=== PATIENT | male | born 1940 | race Caucasian/White ===

== ENCOUNTER 2017-07-06 23:31 | Emergency (ER) | payer MEDICARE, BC ==
[2017-07-07] MEDS ORDERED: NS 0.9% 1000 ML* 1,000 ML IV ONE (00:08)
[2017-07-07] MEDS ORDERED: Acetaminophen TAB* 325 MG PO ONE (00:55)
[2017-07-07 01:07] LABS: Urine Bilirubin Negative (Negative); Urine Glucose Negative (Negative); Urine Nitrite Negative (Negative)
[2017-07-07 01:13] LABS: Hematocrit 42 % (42-52); Hemoglobin 14.2 g/dl (14.0-18.0); Mean Corpuscular HGB Conc 34 g/dl (31-36); Mean Corpuscular Hemoglobin 30 pg (27-31); Mean Corpuscular Volume 88 fL (80-94); Mean Platelet Volume 9 um3 (7.4-10.4); Red Blood Count 4.72 10^6/ul (4.0-5.4); Red Cell Distribution Width 13 % (10.5-15); White Blood Count 10.4 10^3/ul (3.5-10.8)
[2017-07-07 01:29] LABS: Albumin 4.1 g/dL (3.2-5.2); BUN/Creatinine Ratio 16.8 (8-20); Calcium 9.6 mg/dL (8.6-10.3); EGFR African American 67.9 (>60); EGFR Non-African American 52.8 (>60); Globulin 2.8 g/dL (2-4); Potassium 3.3 mmol/L (3.5-5.0); Total Bilirubin 1.1 mg/dL (0.2-1.0); Total Protein 6.9 g/dL (6.4-8.9)
[2017-07-07 01:30] LABS: Troponin I 0.03 ng/mL (<0.04)
[2017-07-07] MEDS ORDERED: Potassium Chlor TAB* 20 MEQ TAB.ER PO ONE (01:45)
[2017-07-07 02:32] VITALS: BP 131/64
--- NOTE | 2017-07-07 05:59 | ED ---
Les Lares Tiffany, scribed for Johann Ernst on 07/07/17 at 0014 . Complex/Multi-Sys Presentation - HPI Summary HPI Summary: This patient is a 77 year old M BIBA to [facility] accompanied by with a chief complaint of cough with no production since yesterday morning. The patient rates the pain 4/10 in severity. Symptoms aggravated by nothing. Symptoms alleviated by nothing. Patient reports weakness, shakiness, and diaphoresis. Patient denies chest pain and shortness of breath. The patient does not use oxygen at home. - History Of Current Complaint Time Seen by Provider: 07/07/17 00:01 Hx Obtained From: Patient Onset/Duration: Lasting Days - Yesterday morning, Still Present Severity Currently: Mild - 4/10 Aggravating Factor(s): Nothing Alleviating Factor(s): Nothing Associated Signs And Symptoms: Positive: Other - weakness, shakiness, and diaphoresis; NEGATIVE: chest pain and shortness of breath - Allergies/Home Medications Allergies/Adverse Reactions: Allergies Allergy/AdvReac Type Severity Reaction Status Date / Time Codeine Allergy Nausea And Verified 07/07/17 00:32 Vomiting Gluten Meal Allergy Unknown Verified 07/07/17 00:32 Reaction Details Wheat Bran Allergy Unknown Verified 07/07/17 00:32 Reaction Details PMH/Surg Hx/FS Hx/Imm Hx Previously Healthy: No Endocrine/Hematology History: Reports: Hx Thyroid Disease - HYPO Denies: Hx Diabetes Cardiovascular History: Reports: Hx Hypertension - WELL CONTROLLED, WHITE COAT SYNDROME, Other Cardiovascular Problems/Disorders - 1ST DEGREE AV BLOCK PER EKG - NO CHANGE SINCE 2007 Denies: Hx Pacemaker/ICD GI History: Reports: Hx Gastroesophageal Reflux Disease, Hx Hiatal Hernia, Other GI Disorders - HERNANDEZ'S ESOPHAGUS History: Reports: Other Problems/Disorders - BPH Musculoskeletal History: Reports: Hx Arthritis, Other Musculoskeletal History - SPINAL STENOSIS Sensory History: Reports: Hx Contacts or Glasses - GLASSES Denies: Hx Hearing Aid Opthamlomology History: Reports: Hx Contacts or Glasses - GLASSES Neurological History: Reports: Other Neuro Impairments/Disorders - ARTHRITIS Psychiatric History: Denies: Hx Panic Disorder - Surgical History Surgery Procedure, Year, and Place: 1975 R KNEE SCOPING [facility] [place]. 1988 PARTIAL THYROIDECTOMY [facility] [place]. 1990 L4/5 [place]. 1996 L KNEE SCOPING [facility] [place]. 1996 SPHINCTEROTOMY. 1997 ABD [facility]. 1999 R TORN RETINA REPAIR [facility] [place]. 2002 LUMBAR SURGERY FOR SPONDYLOLISTHESIS. 2010 BILAT CATARACT [facility] [place]. 2011 R 2ND TOE AMP Hx Anesthesia Reactions: No Infectious Disease History: Denies: Traveled Outside the [place] in Last 30 Days - Family History Known Family History: Positive: Other - Pt denies relevant family history - Social History Alcohol Use: None Hx Substance Use: No Substance Use Type: Reports: None Hx Tobacco Use: Yes Smoking Status (MU): Former Smoker Have You Smoked in the Last Year: No Review of Systems Positive: Skin Diaphoresis Negative: Chest Pain Positive: Cough - With no production. Negative: Shortness Of Breath Neurological: Other - Shakiness Positive: Weakness All Other Systems Reviewed And Are Negative: Yes Physical Exam - Summary Physical Exam Summary: Appearance: Well appearing, no pain distress Skin: warm, dry, reflects adequate perfusion Head/face: normal Eyes: EOMI, CELSO ENT: normal Neck: supple, non-tender Respiratory: CTA, breath sounds present Cardiovascular: RRR, pulses symmetrical Abdomen: non-tender, soft Bowel: present Musculoskeletal: normal, strength/ROM intact Neuro: normal, sensory motor intact, A&Ox3 Triage Information Reviewed: Yes Vital Signs On Initial Exam: Initial Vitals Temp Pulse Resp BP Pulse Ox 101.2 F 91 20 134/65 92 07/07/17 00:21 07/07/17 00:21 07/07/17 00:21 07/07/17 00:21 07/07/17 00:21 Vital Signs Reviewed: Yes Diagnostics - Vital Signs Vital Signs Temp Pulse Resp BP Pulse Ox 07/07/17 03:05 98.4 F 87 21 131/64 93 07/07/17 02:30 82 24 131/64 92 07/07/17 02:00 88 24 130/57 92 07/07/17 01:30 85 22 126/60 92 07/07/17 01:00 94 18 130/63 93 07/07/17 00:30 91 148/69 92 07/07/17 00:25 92 91 07/07/17 00:23 134/65 07/07/17 00:21 101.2 F 91 20 134/65 92 - Laboratory Lab Results: Lab Results 07/07/17 07/07/17 07/07/17 Range/Units 00:55 01:00 01:00 WBC (3.5-10.8) 10^3/ul RBC (4.0-5.4) 10^6/ul Hgb (14.0-18.0) g/dl Hct (42-52) % MCV (80-94) fL MCH (27-31) pg MCHC (31-36) g/dl RDW (10.5-15) % Plt Count (150-450) 10^3/ul MPV (7.4-10.4) um3 Neut % (Auto) (38-83) % Lymph % (Auto) (25-47) % [place] % (Auto) (1-9) % Eos % (Auto) (0-6) % Baso % (Auto) (0-2) % Absolute Neuts (auto) (1.5-7.7) 10^3/ul Absolute Lymphs (auto) (1.0-4.8) 10^3/ul Absolute Monos (auto) (0-0.8) 10^3/ul Absolute Eos (auto) (0-0.6) 10^3/ul Absolute Basos (auto) (0-0.2) 10^3/ul Absolute Nucleated RBC 10^3/ul Nucleated RBC % INR (Anticoag Therapy) 1.08 H (0.77-1.02) APTT 33.2 (26.0-36.3) seconds Sodium (133-145) mmol/L Potassium (3.5-5.0) mmol/L Chloride (101-111) mmol/L Carbon Dioxide (22-32) mmol/L Anion Gap (2-11) mmol/L BUN (6-24) mg/dL Creatinine (0.67-1.17) mg/dL Est GFR ( Amer) (>60) Est GFR (Non-Af Amer) (>60) BUN/Creatinine Ratio (8-20) Glucose (70-100) mg/dL Lactic Acid (0.5-2.0) mmol/L Calcium (8.6-10.3) mg/dL Total Bilirubin (0.2-1.0) mg/dL AST (13-39) U/L ALT (7-52) U/L Alkaline Phosphatase (34-104) U/L Troponin I (<0.04) ng/mL B-Natriuretic Peptide 140 H ( - 100) pg/mL Total Protein (6.4-8.9) g/dL Albumin (3.2-5.2) g/dL Globulin (2-4) g/dL Albumin/Globulin Ratio (1-3) Urine Color Yellow Urine Appearance Clear Urine pH 7.0 (5-9) Ur Specific [place] 1.011 (1.010-1.030) Urine Protein Negative (Negative) Urine Ketones Negative (Negative) Urine Blood Negative (Negative) Urine Nitrate Negative (Negative) Urine Bilirubin Negative (Negative) Urine Urobilinogen Negative (Negative) Ur Leukocyte Esterase Negative (Negative) Urine Glucose Negative (Negative) Urine Ascorbic Acid * H (Negative) Influenza A (Rapid) (Negative) Influenza B (Rapid) (Negative) 07/07/17 07/07/17 07/07/17 Range/Units 01:00 01:00 01:00 WBC 10.4 (3.5-10.8) 10^3/ul RBC 4.72 (4.0-5.4) 10^6/ul Hgb 14.2 (14.0-18.0) g/dl Hct 42 (42-52) % MCV 88 (80-94) fL MCH 30 (27-31) pg MCHC 34 (31-36) g/dl RDW 13 (10.5-15) % Plt Count 169 (150-450) 10^3/ul MPV 9 (7.4-10.4) um3 Neut % (Auto) 83.5 H (38-83) % Lymph % (Auto) 5.2 L (25-47) % [place] % (Auto) 10.3 H (1-9) % Eos % (Auto) 0.7 (0-6) % Baso % (Auto) 0.3 (0-2) % Absolute Neuts (auto) 8.7 H (1.5-7.7) 10^3/ul Absolute Lymphs (auto) 0.5 L (1.0-4.8) 10^3/ul Absolute Monos (auto) 1.1 H (0-0.8) 10^3/ul Absolute Eos (auto) 0.1 (0-0.6) 10^3/ul Absolute Basos (auto) 0 (0-0.2) 10^3/ul Absolute Nucleated RBC 0 10^3/ul Nucleated RBC % 0 INR (Anticoag Therapy) (0.77-1.02) APTT (26.0-36.3) seconds Sodium 131 L (133-145) mmol/L Potassium 3.3 L (3.5-5.0) mmol/L Chloride 92 L (101-111) mmol/L Carbon Dioxide 30 (22-32) mmol/L Anion Gap 9 (2-11) mmol/L BUN 22 (6-24) mg/dL Creatinine 1.31 H (0.67-1.17) mg/dL Est GFR ( Amer) 67.9 (>60) Est GFR (Non-Af Amer) 52.8 (>60) BUN/Creatinine Ratio 16.8 (8-20) Glucose 191 H (70-100) mg/dL Lactic Acid 2.0 (0.5-2.0) mmol/L Calcium 9.6 (8.6-10.3) mg/dL Total Bilirubin 1.10 H (0.2-1.0) mg/dL AST 18 (13-39) U/L ALT 17 (7-52) U/L Alkaline Phosphatase 68 (34-104) U/L Troponin I 0.03 (<0.04) ng/mL B-Natriuretic Peptide ( - 100) pg/mL Total Protein 6.9 (6.4-8.9) g/dL Albumin 4.1 (3.2-5.2) g/dL Globulin 2.8 (2-4) g/dL Albumin/Globulin Ratio 1.5 (1-3) Urine Color Urine Appearance Urine pH (5-9) Ur Specific [place] (1.010-1.030) Urine Protein (Negative) Urine Ketones (Negative) Urine Blood (Negative) Urine Nitrate (Negative) Urine Bilirubin (Negative) Urine Urobilinogen (Negative) Ur Leukocyte Esterase (Negative) Urine Glucose (Negative) Urine Ascorbic Acid (Negative) Influenza A (Rapid) (Negative) Influenza B (Rapid) (Negative) 07/07/17 Range/Units 01:43 WBC (3.5-10.8) 10^3/ul RBC (4.0-5.4) 10^6/ul Hgb (14.0-18.0) g/dl Hct (42-52) % MCV (80-94) fL MCH (27-31) pg MCHC (31-36) g/dl RDW (10.5-15) % Plt Count (150-450) 10^3/ul MPV (7.4-10.4) um3 Neut % (Auto) (38-83) % Lymph % (Auto) (25-47) % [place] % (Auto) (1-9) % Eos % (Auto) (0-6) % Baso % (Auto) (0-2) % Absolute Neuts (auto) (1.5-7.7) 10^3/ul Absolute Lymphs (auto) (1.0-4.8) 10^3/ul Absolute Monos (auto) (0-0.8) 10^3/ul Absolute Eos (auto) (0-0.6) 10^3/ul Absolute Basos (auto) (0-0.2) 10^3/ul Absolute Nucleated RBC 10^3/ul Nucleated RBC % INR (Anticoag Therapy) (0.77-1.02) APTT (26.0-36.3) seconds Sodium (133-145) mmol/L Potassium (3.5-5.0) mmol/L Chloride (101-111) mmol/L Carbon Dioxide (22-32) mmol/L Anion Gap (2-11) mmol/L BUN (6-24) mg/dL Creatinine (0.67-1.17) mg/dL Est GFR ( Amer) (>60) Est GFR (Non-Af Amer) (>60) BUN/Creatinine Ratio (8-20) Glucose (70-100) mg/dL Lactic Acid (0.5-2.0) mmol/L Calcium (8.6-10.3) mg/dL Total Bilirubin (0.2-1.0) mg/dL AST (13-39) U/L ALT (7-52) U/L Alkaline Phosphatase (34-104) U/L Troponin I (<0.04) ng/mL B-Natriuretic Peptide ( - 100) pg/mL Total Protein (6.4-8.9) g/dL Albumin (3.2-5.2) g/dL Globulin (2-4) g/dL Albumin/Globulin Ratio (1-3) Urine Color Urine Appearance Urine pH (5-9) Ur Specific [place] (1.010-1.030) Urine Protein (Negative) Urine Ketones (Negative) Urine Blood (Negative) Urine Nitrate (Negative) Urine Bilirubin (Negative) Urine Urobilinogen (Negative) Ur Leukocyte Esterase (Negative) Urine Glucose (Negative) Urine Ascorbic Acid (Negative) Influenza A (Rapid) Negative (Negative) Influenza B (Rapid) Negative (Negative) Result Diagrams: 07/07/17 01:00 07/07/17 01:00 Lab Statement: Any lab studies that have been ordered have been reviewed, and results considered in the medical decision making process. - Radiology CXR Radiology Interpretation Completed By: ED Physician - Normal - EKG 00:28 Cardiac Rate: NL EKG Rhythm: Sinus Rhythm - 93 BPM EKG Interpretation: No acute changes Complex Multi-Symp Course/Dx Course Of Treatment: This patient is a 77 year old M c/o of cough with no production since yesterday morning. An EKG reveals sinus rhythm and no acute changes. CXR is, per ED physician, normal. Bloodwork/UA obtained. Patient will be discharged with follow up from PCP. The patient is agreeable with this plan. - Diagnoses Differential Diagnoses/HQI/PQRI: Sepsis, Urinary Tract Infection - influenza Provider Diagnoses: Fever, Weakness Discharge - Discharge Plan Condition: Stable Disposition: HOME Patient Education Materials: Fever in Adults (ED), Weakness (ED) Referrals: Gisselle Arnold MD [Primary Care Provider] - 3 Days Additional Instructions: Follow up with primary care provider in 3 days. Return to the Emergency Room if current symptoms worsen or if new symptoms develop. The documentation as recorded by the Les coon Tiffany accurately reflects the service I personally performed and the decisions made by Sujata perez Emmanuel.
--- NOTE | 2017-07-07 09:12 | RAD ---
Indication: Shortness of breath. Single frontal view of the chest performed at 0044 hours was reviewed. Comparison is made with previous exam dated April 26, 2015. Cardiomegaly is noted. No mediastinal shift is noted. Lung moreno are clear. IMPRESSION: NO ACTIVE CARDIOPULMONARY DISEASE IS NOTED.
== END 2017-07-07 03:05 | disposition home or self-care (01) ==
LOC: ED 23:31
DX: R50.9 Fever, unspecified (principal); R53.1 Weakness; Z87.891 Personal history of nicotine dependence
CPT/HCPCS: 36415; 71010; 80053; 81003; 83605; 83880; 84484; 85025; 85610; 85730; 87502; 93005; 99283; A9270-GY

== ENCOUNTER 2020-11-05 00:33 | Inpatient (IN) ==
[2020-11-05] MEDS ORDERED: NS 0.9% 1000 ml BAG 1,000 ML IV.FLUID IV ONE (01:10)
[2020-11-05] MEDS ORDERED: Piperacillin/Tazobac ADVAN 3.375 GM in NS 0.9% 100 ml BAG 100 ML IVPB ONE (01:10)
[2020-11-05 02:00] LABS: Hematocrit 50 % (42-52); Hemoglobin 17.1 g/dL (14.0-18.0); Mean Corpuscular HGB Conc 34 g/dL (31-36); Mean Corpuscular Hemoglobin 32 pg (27-31); Mean Corpuscular Volume 93 fL (80-94); Mean Platelet Volume 9.1 fL (7.4-10.4); Platelet Count 250 10^3/uL (150-450); Red Blood Count 5.36 10^6 /uL (4.18-5.48); Red Cell Distribution Width 14 % (10-15); White Blood Count 29.5 10^3/uL (3.5-10.8)
[2020-11-05 02:01] LABS: ABS Lymphocytes 0.7 10^3/ul (1.0-4.8); ABS Monocytes 1.7 10^3/ul (0-0.8); ABS Neutrophils 27.1 10^3/ul (1.5-7.7); Lymphocyte % 2.4 %
[2020-11-05 02:11] LABS: Activated Partial Thrombo Time 29.7 seconds (26.0-38.0); INR 1.21 (0.82-1.09)
[2020-11-05] MEDS ORDERED: HYDROcodone/ACETAMIN 5/325 mg TAB PO ONE (02:15)
[2020-11-05 02:24] LABS: ALT 24 U/L (7-52); AST 19 U/L (13-39); Albumin 4.3 g/dL (3.2-5.2); Albumin/Globulin Ratio 1.5 (1-3); Alkaline Phosphatase 81 U/L (34-104); Anion Gap 16 mmol/L (2-11); Blood Urea Nitrogen 29 mg/dL (6-24); C Reactive Protein 18.08 mg/L (<8.01); CO2 Carbon Dioxide 26 mmol/L (22-32); Chloride 85 mmol/L (101-111); EGFR African American 77.5 (>60); EGFR Non-African American 64.1 (>60); Globulin 2.8 g/dL (2-4); Glucose 197 mg/dL (70-100); Potassium 3.1 mmol/L (3.5-5.0); Sodium 127 mmol/L (135-145); Total Protein 7.1 g/dL (6.4-8.9)
[2020-11-05 02:31] LABS: Troponin I 0.59 ng/mL (<0.03)
[2020-11-05 02:41] LABS: Influenza A Molecular Negative (Negative); Influenza B Molecular Negative (Negative)
[2020-11-05 03:06] LABS: Urine Appearance Turbid; Urine Bilirubin Negative (Negative); Urine Blood 3+ (Negative); Urine Color Amber; Urine Glucose Negative (Negative); Urine Ketones Negative (Negative); Urine Nitrite Negative (Negative); Urine Protein 3+(>=500 mg/dL) (Negative); Urine Specific Gravity 1.016 (1.002-1.030); Urine Urobilinogen Negative (Negative)
[2020-11-05 03:09] LABS: Urine Bacteria Absent (Absent); Urine Red Blood Cell 3+(>10/hpf) (Absent); Urine White Blood Cell 3+(>20/hpf) (Absent)
[2020-11-05] MEDS: Vancomycin 1,250 MG in NS 0.9% 250 ml 250 ML IVPB ONE ×2 (03:16→05:54)
[2020-11-05 04:47] LABS: Magnesium 1.5 mg/dL (1.9-2.7)
[2020-11-05] MEDS ORDERED: Zosyn per Pharmacy NOTE FOLLOW UP SCH (05:00)
[2020-11-05] MEDS ORDERED: Magnesium Sulfate 2 gm BAG 2 GM/50 ML BAG IVPB ONE (05:51)
[2020-11-05] MEDS ORDERED: Potassium Chlor 20 meq TAB.ER PO ONE (06:00)
[2020-11-05] MEDS: Enoxaparin 40 MG/0.4 ML SYR SUBCUT SCH (06:22)
[2020-11-05] MEDS: ZOSYN 3.375 GM Q8H per EXTENDED INFUSION IV SCH ×3 (06:36→21:54)
[2020-11-05 09:30] LABS: Troponin I 0.46 ng/mL (<0.03)
[2020-11-05] MEDS: NS 0.9% 1000 ml BAG 1,000 ML IV SCH ×2 (10:54→21:53)
[2020-11-05] MEDS: Polyethylene Glycol 3350 17 GM PACKET PO PRN (21:52)
[2020-11-06] MEDS: Enoxaparin 40 MG/0.4 ML SYR SUBCUT SCH (06:28)
[2020-11-06] MEDS: ZOSYN 3.375 GM Q8H per EXTENDED INFUSION IV SCH ×3 (06:29→21:47)
[2020-11-06 09:15] LABS: Hematocrit 42 % (42-52); Hemoglobin 14.4 g/dL (14.0-18.0); Mean Corpuscular HGB Conc 35 g/dL (31-36); Mean Corpuscular Hemoglobin 32 pg (27-31); Mean Corpuscular Volume 92 fL (80-94); Mean Platelet Volume 8.6 fL (7.4-10.4); Platelet Count 216 10^3/uL (150-450); Red Blood Count 4.51 10^6 /uL (4.18-5.48); Red Cell Distribution Width 14 % (10-15); White Blood Count 30.1 10^3/uL (3.5-10.8)
[2020-11-06 09:35] LABS: Albumin 3.7 g/dL (3.2-5.2); Albumin/Globulin Ratio 1.4 (1-3); C Reactive Protein 178.25 mg/L (<8.01); Calcium 9.6 mg/dL (8.6-10.3); EGFR African American 90.7 (>60); Globulin 2.7 g/dL (2-4); Potassium 3.7 mmol/L (3.5-5.0); Total Bilirubin 2.7 mg/dL (0.2-1.0); Total Protein 6.4 g/dL (6.4-8.9)
[2020-11-06] MEDS: NS 0.9% 1000 ml BAG 1,000 ML IV SCH ×2 (14:40→21:47)
[2020-11-06] MEDS: Polyethylene Glycol 3350 17 GM PACKET PO PRN (14:41)
[2020-11-06] MEDS: Cholecalciferol (VIT D3) 1,000 unit TAB PO SCH (22:00)
[2020-11-07] MEDS ORDERED: hydrALAZINE 20 mg/ml 1 ML Vial IV IV SLOW PU ONE (00:11)
[2020-11-07] MEDS ORDERED: NS 0.9% 1000 ml BAG 1,000 ML IV SCH (00:15)
[2020-11-07] MEDS ORDERED: Furosemide 20 mg/2 ml IV VIAL IV ONE (01:59)
[2020-11-07] MEDS ORDERED: Morphine 2 MG/ML SYRINGE IV ONE (02:37)
[2020-11-07 04:13] LABS: Urine Appearance Clear; Urine Bilirubin Negative (Negative); Urine Blood 1+ (Negative); Urine Color Straw; Urine Glucose 1+(50 mg/dL) (Negative); Urine Ketones Negative (Negative); Urine Nitrite Negative (Negative); Urine Protein 1+(30 mg/dL) (Negative); Urine Specific Gravity 1.008 (1.002-1.030); Urine Urobilinogen Negative (Negative)
[2020-11-07 04:14] LABS: Urine Bacteria Absent (Absent); Urine Red Blood Cell Trace(0-2/hpf) (Absent); Urine White Blood Cell Trace(0-5/hpf) (Absent)
[2020-11-07] MEDS: Enoxaparin 40 MG/0.4 ML SYR SUBCUT SCH (06:13)
[2020-11-07] MEDS: ZOSYN 3.375 GM Q8H per EXTENDED INFUSION IV SCH ×2 (06:14→14:52)
[2020-11-07 06:40] LABS: ABS Lymphocytes 0.4 10^3/ul (1.0-4.8); ABS Monocytes 1.2 10^3/ul (0-0.8); ABS Neutrophils 14.2 10^3/ul (1.5-7.7); Hematocrit 42 % (42-52); Hemoglobin 14.1 g/dL (14.0-18.0); Lymphocyte % 2.4 %; Mean Corpuscular HGB Conc 34 g/dL (31-36); Mean Corpuscular Hemoglobin 31 pg (27-31); Mean Corpuscular Volume 94 fL (80-94); Mean Platelet Volume 8.7 fL (7.4-10.4); Platelet Count 189 10^3/uL (150-450); Red Blood Count 4.49 10^6 /uL (4.18-5.48); Red Cell Distribution Width 14 % (10-15); White Blood Count 15.7 10^3/uL (3.5-10.8)
[2020-11-07 06:51] LABS: C Reactive Protein 92.22 mg/L (<8.01); EGFR African American 90.7 (>60); Magnesium 1.8 mg/dL (1.9-2.7); Potassium 3.3 mmol/L (3.5-5.0)
[2020-11-07] MEDS ORDERED: Potassium Chlor 20 meq TAB.ER PO ONE (14:15)
[2020-11-07] MEDS: Polyethylene Glycol 3350 17 GM PACKET PO PRN (14:51)
[2020-11-07] MEDS ORDERED: Magnesium Sulfate 2 gm BAG 2 GM/50 ML BAG IVPB ONE (17:24)
[2020-11-07] MEDS: cefTRIAXone 1 gm/50 mL NS BAG 1 GM/50 ML BAG IVPB SCH (21:42)
[2020-11-07] MEDS: Cholecalciferol (VIT D3) 1,000 unit TAB PO SCH (22:08)
[2020-11-08] MEDS: Enoxaparin 40 MG/0.4 ML SYR SUBCUT SCH (05:39)
[2020-11-08 09:11] LABS: ABS Lymphocytes 0.6 10^3/ul (1.0-4.8); ABS Monocytes 1.2 10^3/ul (0-0.8); ABS Neutrophils 8.6 10^3/ul (1.5-7.7); Eosinophil % 0.2 %; Hematocrit 44 % (42-52); Hemoglobin 15.2 g/dL (14.0-18.0); Lymphocyte % 5.8 %; Mean Corpuscular HGB Conc 34 g/dL (31-36); Mean Corpuscular Hemoglobin 32 pg (27-31); Mean Corpuscular Volume 93 fL (80-94); Platelet Count 193 10^3/uL (150-450); Red Blood Count 4.77 10^6 /uL (4.18-5.48); Red Cell Distribution Width 14 % (10-15); White Blood Count 10.5 10^3/uL (3.5-10.8)
[2020-11-08 09:37] LABS: Calcium 9.3 mg/dL (8.6-10.3); Potassium 4.2 mmol/L (3.5-5.0)
[2020-11-08 09:43] LABS: EGFR African American 88.6 (>60); EGFR Non-African American 73.2 (>60)
[2020-11-08] MEDS: RINSE MT PRN ×2 (09:48→21:00)
[2020-11-08] MEDS: Polyethylene Glycol 3350 17 GM PACKET PO PRN (10:08)
[2020-11-08] MEDS ORDERED: COVID-19 VACCINE, MRNA(MODERNA)/PF 100 MCG/0.5 ML IM ONE (14:00)
[2020-11-08] MEDS ORDERED: Al Hydrox/Mg Hydrox/Simet LIQ 30 ML UDC PO PRN (15:36)
[2020-11-08] MEDS ORDERED: Albuterol HFA INHALER 8 gm MDI INH PRN (15:37)
[2020-11-08] MEDS: cefTRIAXone 1 gm/50 mL NS BAG 1 GM/50 ML BAG IVPB SCH (21:00)
[2020-11-08] MEDS: Cholecalciferol (VIT D3) 1,000 unit TAB PO SCH (21:05)
[2020-11-09] MEDS: Enoxaparin 40 MG/0.4 ML SYR SUBCUT SCH (05:29)
[2020-11-09] MEDS ORDERED: Furosemide 20 mg/2 ml IV VIAL IV ONE (08:44)
[2020-11-09 09:20] LABS: ABS Lymphocytes 0.9 10^3/ul (1.0-4.8); ABS Monocytes 1.2 10^3/ul (0-0.8); ABS Neutrophils 8.2 10^3/ul (1.5-7.7); Eosinophil % 0.3 %; Hematocrit 43 % (42-52); Hemoglobin 14.6 g/dL (14.0-18.0); Lymphocyte % 8.3 %; Mean Corpuscular HGB Conc 34 g/dL (31-36); Mean Corpuscular Hemoglobin 32 pg (27-31); Mean Corpuscular Volume 93 fL (80-94); Mean Platelet Volume 8.6 fL (7.4-10.4); Nucleated Red Blood Cells % 0.1; Platelet Count 199 10^3/uL (150-450); Red Blood Count 4.63 10^6 /uL (4.18-5.48); Red Cell Distribution Width 14 % (10-15); White Blood Count 10.3 10^3/uL (3.5-10.8)
[2020-11-09 09:39] LABS: Calcium 9.3 mg/dL (8.6-10.3); EGFR African American 110.4 (>60); EGFR Non-African American 91.2 (>60)
[2020-11-09] MEDS: Cholecalciferol (VIT D3) 1,000 unit TAB PO SCH (20:30)
[2020-11-09] MEDS: cefTRIAXone 1 gm/50 mL NS BAG 1 GM/50 ML BAG IVPB SCH (20:33)
[2020-11-09] MEDS: RINSE MT PRN (21:50)
[2020-11-10] MEDS: Enoxaparin 40 MG/0.4 ML SYR SUBCUT SCH (05:13)
[2020-11-10 08:37] VITALS: BP 142/82
== END 2020-11-10 12:45 | DRG 872 ==
LOC: ED 00:33 → MED 04:02
PROVIDERS: ADMIT Internal Medicine Interventional Cardiology; ATTEND Hospitalist

== ENCOUNTER 2020-12-08 15:49 | Inpatient (IN) ==
[2020-12-08] MEDS ORDERED: Lactated Ringers 1000 ml BAG IV.FLUID IV ONE (16:23)
[2020-12-08] MEDS ORDERED: Piperacillin/Tazobac ADVAN 3.375 GM in NS 0.9% 100 ml BAG 100 ML IVPB ONE (16:23)
[2020-12-08] MEDS ORDERED: Vancomycin 1,250 MG in NS 0.9% 250 ml 250 ML IVPB ONE (17:00)
[2020-12-08 17:02] LABS: ABS Basophils 0.1 10^3/ul (0-0.2); ABS Lymphocytes 0.4 10^3/ul (1.0-4.8); ABS Monocytes 1.2 10^3/ul (0-0.8); ABS Neutrophils 18.8 10^3/ul (1.5-7.7); Hematocrit 37 % (42-52); Hemoglobin 12.9 g/dL (14.0-18.0); Lymphocyte % 1.9 %; Mean Corpuscular HGB Conc 35 g/dL (31-36); Mean Corpuscular Hemoglobin 32 pg (27-31); Mean Corpuscular Volume 91 fL (80-94); Mean Platelet Volume 8.8 fL (7.4-10.4); Platelet Count 282 10^3/uL (150-450); Red Cell Distribution Width 14 % (10-15); White Blood Count 20.4 10^3/uL (3.5-10.8)
[2020-12-08 17:11] LABS: Activated Partial Thrombo Time 37.1 seconds (26.0-38.0); INR 1.48 (0.82-1.09)
[2020-12-08 17:20] LABS: ALT 38 U/L (7-52); Albumin 3.4 g/dL (3.2-5.2); Albumin/Globulin Ratio 0.9 (1-3); Alkaline Phosphatase 108 U/L (35-149); Blood Urea Nitrogen 37 mg/dL (6-24); C Reactive Protein 335.56 mg/L (<8.01); CO2 Carbon Dioxide 24 mmol/L (22-32); Calcium 9.3 mg/dL (8.6-10.3); Chloride 93 mmol/L (101-111); EGFR African American 58.2 (>60); EGFR Non-African American 48.1 (>60); Globulin 3.7 g/dL (2-4); Glucose 189 mg/dL (70-100); Sodium 126 mmol/L (135-145); Total Protein 7.1 g/dL (6.4-8.9)
[2020-12-08 17:24] LABS: Anion Gap 9 mmol/L (2-11); Troponin I 0.81 ng/mL (<0.03)
[2020-12-08 17:40] LABS: Urine Appearance Cloudy; Urine Bilirubin Negative (Negative); Urine Blood 3+ (Negative); Urine Color Yellow; Urine Glucose Negative (Negative); Urine Ketones Negative (Negative); Urine Nitrite Negative (Negative); Urine Protein 2+(100 mg/dL) (Negative); Urine Specific Gravity 1.014 (1.002-1.030); Urine Urobilinogen Negative (Negative)
[2020-12-08 18:06] LABS: Urine Bacteria Absent (Absent); Urine Red Blood Cell 3+(>10/hpf) (Absent); Urine Squamous Epithelial Cell Present (Absent); Urine Transitional Epithelial Present (Absent); Urine White Blood Cell 3+(>20/hpf) (Absent)
[2020-12-08 20:44] LABS: Influenza A Molecular Negative (Negative); Influenza B Molecular Negative (Negative)
[2020-12-08] MEDS ORDERED: NS 0.9% 500 ml BAG 500 ML IV SCH (22:00)
[2020-12-08] MEDS ORDERED: Dextrose 50% Syringe 50 ml 25 GM/50 ML SYRINGE IV PUSH PRN (23:57)
[2020-12-09] MEDS ORDERED: Albuterol HFA INHALER 8 gm MDI INH PRN (00:27)
[2020-12-09] MEDS ORDERED: Al Hydrox/Mg Hydrox/Simet LIQ 30 ML UDC PO PRN (00:27)
[2020-12-09] MEDS ORDERED: Polyethylene Glycol 3350 17 GM PACKET PO PRN (00:27)
[2020-12-09] MEDS ORDERED: NS 0.9% 500 ml BAG 500 ML IV SCH ×2 (00:41)
[2020-12-09] MEDS ORDERED: Vancomycin per Pharmacy 1 EA NOTE FOLLOW UP SCH (01:00)
[2020-12-09] MEDS: Enoxaparin 40 MG/0.4 ML SYR SUBCUT SCH ×2 (01:02→22:35)
[2020-12-09 01:15] LABS: AST Redraw 36 U/L (13-39)
[2020-12-09 01:19] LABS: Troponin I 0.62 ng/mL (<0.03)
[2020-12-09] MEDS: Albuterol/Ipratropium NEB.SOL (2.5/0.5 MG) 3 ML NEB.SOLN INH SCH ×4 (04:35→19:39)
[2020-12-09 04:55] LABS: Anion Gap 6 mmol/L (2-11); Blood Urea Nitrogen 29 mg/dL (6-24); CO2 Carbon Dioxide 24 mmol/L (22-32); Calcium 8.4 mg/dL (8.6-10.3); Chloride 100 mmol/L (101-111); EGFR African American 73.7 (>60); EGFR Non-African American 60.9 (>60); Glucose 138 mg/dL (70-100); Potassium 3.7 mmol/L (3.5-5.0); Sodium 130 mmol/L (135-145)
[2020-12-09 05:37] LABS: ABS Lymphocytes 0.5 10^3/ul (1.0-4.8); ABS Neutrophils 11.9 10^3/ul (1.5-7.7); Eosinophil % 0.1 %; Hematocrit 31 % (42-52); Hemoglobin 10.5 g/dL (14.0-18.0); Lymphocyte % 3.5 %; Mean Corpuscular HGB Conc 34 g/dL (31-36); Mean Corpuscular Hemoglobin 31 pg (27-31); Mean Corpuscular Volume 92 fL (80-94); Mean Platelet Volume 8.2 fL (7.4-10.4); Platelet Count 232 10^3/uL (150-450); Red Blood Count 3.39 10^6 /uL (4.18-5.48); Red Cell Distribution Width 14 % (10-15); White Blood Count 13.4 10^3/uL (3.5-10.8)
[2020-12-09 05:47] LABS: Calcium 8.6 mg/dL (8.6-10.3); Magnesium 1.3 mg/dL (1.9-2.7); Potassium 3.7 mmol/L (3.5-5.0)
[2020-12-09 05:52] LABS: Troponin I 0.61 ng/mL (<0.03)
[2020-12-09 05:53] LABS: EGFR African American 73.7 (>60); EGFR Non-African American 60.9 (>60)
[2020-12-09] MEDS ORDERED: Perflutren Lipid Microsphere 3 ML VIAL ONE (08:01)
[2020-12-09] MEDS: Magnesium Sulf 4 GM/100 ML IV 4,000 MG/100 ML BAG IVPB ONE ×2 (08:19→14:40)
[2020-12-09] MEDS: CMC: Meloxicam 7.5 mg TAB (NF) PO SCH ×2 (08:20→22:35)
[2020-12-09] MEDS ORDERED: Cefepime 2 GM in Dextrose 2 GM/50 ML BAG IV SCH (09:00)
[2020-12-09] MEDS: Cefepime 2 GM in Dextrose 2 GM/50 ML BAG IV SCH (14:00)
[2020-12-09] MEDS ORDERED: Vancomycin Random Level NOTE FOLLOW UP ONE (17:00)
[2020-12-09] MEDS: Vancomycin 1,250 MG in NS 0.9% 250 ml 250 ML IVPB SCH (17:32)
[2020-12-09] MEDS ORDERED: Albuterol/Ipratropium NEB.SOL (2.5/0.5 MG) 3 ML NEB.SOLN INH PRN (19:45)
[2020-12-09] MEDS ORDERED: Senna TAB 8.6 mg TAB PO SCH (21:00)
[2020-12-09] MEDS: Cholecalciferol (VIT D3) 1,000 unit TAB PO SCH (22:34)
[2020-12-09] MEDS: Magnesium Hydroxide LIQ 30 ML UDC PO SCH (22:35)
[2020-12-10] MEDS: Cefepime 2 GM in Dextrose 2 GM/50 ML BAG IV SCH ×2 (02:33→13:46)
[2020-12-10 07:43] LABS: Hematocrit 31 % (42-52); Hemoglobin 10.8 g/dL (14.0-18.0); Mean Corpuscular HGB Conc 34 g/dL (31-36); Mean Corpuscular Hemoglobin 32 pg (27-31); Mean Corpuscular Volume 92 fL (80-94); Mean Platelet Volume 8.7 fL (7.4-10.4); Platelet Count 226 10^3/uL (150-450); Red Blood Count 3.42 10^6 /uL (4.18-5.48); Red Cell Distribution Width 14 % (10-15); White Blood Count 8.5 10^3/uL (3.5-10.8)
[2020-12-10 08:29] LABS: Calcium 8.6 mg/dL (8.6-10.3); EGFR African American 81.8 (>60); EGFR Non-African American 67.6 (>60); Magnesium 2.2 mg/dL (1.9-2.7); Potassium 4.3 mmol/L (3.5-5.0)
[2020-12-10] MEDS ORDERED: Vancomycin 1,000 MG in NS 0.9% 250 ml 250 ML IVPB ONE (09:00)
[2020-12-10] MEDS: Magnesium Hydroxide LIQ 30 ML UDC PO SCH ×2 (09:13→20:28)
[2020-12-10] MEDS: CMC: Meloxicam 7.5 mg TAB (NF) PO SCH (09:19)
[2020-12-10] MEDS ORDERED: Senna TAB 8.6 mg TAB PO PRN (11:27)
[2020-12-10] MEDS: Vancomycin 1,250 MG in NS 0.9% 250 ml 250 ML IVPB SCH (17:28)
[2020-12-10] MEDS: Cholecalciferol (VIT D3) 1,000 unit TAB PO SCH (20:20)
[2020-12-10] MEDS: Enoxaparin 40 MG/0.4 ML SYR SUBCUT SCH (20:29)
[2020-12-11] MEDS: Cefepime 2 GM in Dextrose 2 GM/50 ML BAG IV SCH ×2 (02:41→14:40)
[2020-12-11 06:27] LABS: Calcium 8.8 mg/dL (8.6-10.3); EGFR African American 88.6 (>60); EGFR Non-African American 73.2 (>60); Magnesium 2.2 mg/dL (1.9-2.7); Potassium 4.3 mmol/L (3.5-5.0)
[2020-12-11] MEDS: CMCS:Meloxicam 7.5 mg TAB (NF) PO PRN (09:40)
[2020-12-11] MEDS: Magnesium Hydroxide LIQ 30 ML UDC PO SCH (09:41)
[2020-12-11] MEDS ORDERED: Vancomycin Trough Check NOTE FOLLOW UP ONE (17:30)
[2020-12-11] MEDS: Vancomycin 1,250 MG in NS 0.9% 250 ml 250 ML IVPB SCH (20:34)
[2020-12-11] MEDS: Enoxaparin 40 MG/0.4 ML SYR SUBCUT SCH (22:10)
[2020-12-11] MEDS: Cholecalciferol (VIT D3) 1,000 unit TAB PO SCH (22:11)
[2020-12-12 06:38] LABS: Calcium 8.7 mg/dL (8.6-10.3); EGFR African American 95.3 (>60); EGFR Non-African American 78.8 (>60); Potassium 3.9 mmol/L (3.5-5.0)
[2020-12-12] MEDS: cefTRIAXone 1 gm/50 mL NS BAG 1 GM/50 ML BAG IVPB SCH (09:10)
[2020-12-12] MEDS: Vancomycin 1,250 MG in NS 0.9% 250 ml 250 ML IVPB SCH (17:33)
[2020-12-12] MEDS: Cholecalciferol (VIT D3) 1,000 unit TAB PO SCH (20:21)
[2020-12-12] MEDS: Enoxaparin 40 MG/0.4 ML SYR SUBCUT SCH (20:23)
[2020-12-13 05:56] LABS: ABS Basophils 0.1 10^3/ul (0-0.2); ABS Eosinophils 0.1 10^3/ul (0-0.6); ABS Lymphocytes 0.9 10^3/ul (1.0-4.8); ABS Monocytes 1.1 10^3/ul (0-0.8); ABS Neutrophils 7.7 10^3/ul (1.5-7.7); Eosinophil % 1.3 %; Hematocrit 35 % (42-52); Hemoglobin 11.9 g/dL (14.0-18.0); Lymphocyte % 9.4 %; Mean Corpuscular HGB Conc 34 g/dL (31-36); Mean Corpuscular Hemoglobin 31 pg (27-31); Mean Corpuscular Volume 91 fL (80-94); Mean Platelet Volume 8.7 fL (7.4-10.4); Platelet Count 286 10^3/uL (150-450); Red Blood Count 3.81 10^6 /uL (4.18-5.48); Red Cell Distribution Width 14 % (10-15); White Blood Count 9.9 10^3/uL (3.5-10.8)
[2020-12-13 06:18] LABS: Calcium 8.8 mg/dL (8.6-10.3); EGFR African American 97.8 (>60); EGFR Non-African American 80.8 (>60); Potassium 3.9 mmol/L (3.5-5.0)
[2020-12-13] MEDS: cefTRIAXone 1 gm/50 mL NS BAG 1 GM/50 ML BAG IVPB SCH (09:57)
[2020-12-13] MEDS: Vancomycin 1,250 MG in NS 0.9% 250 ml 250 ML IVPB SCH (18:54)
[2020-12-13] MEDS: Cholecalciferol (VIT D3) 1,000 unit TAB PO SCH (21:29)
[2020-12-13] MEDS: Enoxaparin 40 MG/0.4 ML SYR SUBCUT SCH (21:30)
[2020-12-14 05:21] LABS: Hematocrit 34 % (42-52); Hemoglobin 11.8 g/dL (14.0-18.0); Mean Corpuscular HGB Conc 35 g/dL (31-36); Mean Corpuscular Hemoglobin 32 pg (27-31); Mean Corpuscular Volume 91 fL (80-94); Mean Platelet Volume 8.6 fL (7.4-10.4); Platelet Count 320 10^3/uL (150-450); Red Blood Count 3.75 10^6 /uL (4.18-5.48); Red Cell Distribution Width 14 % (10-15); White Blood Count 9.8 10^3/uL (3.5-10.8)
[2020-12-14 05:31] LABS: Calcium 8.8 mg/dL (8.6-10.3); EGFR African American 101.7 (>60); Potassium 3.4 mmol/L (3.5-5.0)
[2020-12-14 06:59] LABS: Magnesium 1.8 mg/dL (1.9-2.7)
[2020-12-14 07:32] LABS: ABS Basophils 0.1 10^3/ul (0-0.2); ABS Eosinophils 0.2 10^3/ul (0-0.6); ABS Lymphocytes 1.4 10^3/ul (1.0-4.8); ABS Monocytes 1.2 10^3/ul (0-0.8); Eosinophil % 1.6 %
[2020-12-14] MEDS: cefTRIAXone 1 gm/50 mL NS BAG 1 GM/50 ML BAG IVPB SCH (09:18)
[2020-12-14] MEDS ORDERED: Magnesium Sulfate 2 gm BAG 2 GM/50 ML BAG IVPB ONE (09:25)
[2020-12-14] MEDS ORDERED: Vancomycin Trough Check NOTE FOLLOW UP ONE (17:30)
[2020-12-14 18:07] LABS: EGFR African American 97.8 (>60); EGFR Non-African American 80.8 (>60)
[2020-12-14 18:20] LABS: Vancomycin Trough 16.4 mcg/mL
[2020-12-14] MEDS: Vancomycin 1,250 MG in NS 0.9% 250 ml 250 ML IVPB SCH (20:05)
[2020-12-14] MEDS: Cholecalciferol (VIT D3) 1,000 unit TAB PO SCH (21:15)
[2020-12-14] MEDS: Enoxaparin 40 MG/0.4 ML SYR SUBCUT SCH (21:18)
[2020-12-15] MEDS ORDERED: Vancomycin 1000 MG in NS 0.9% 250 ML IVPB SCH (16:00)
[2020-12-15] MEDS: Cholecalciferol (VIT D3) 1,000 unit TAB PO SCH (20:12)
[2020-12-15] MEDS: Enoxaparin 40 MG/0.4 ML SYR SUBCUT SCH (20:16)
[2020-12-15] MEDS: Nystatin TOP POWDER 15 GM BTL TOPICAL SCH (23:10)
[2020-12-16] MEDS: Magnesium Hydroxide LIQ 30 ML UDC PO PRN ×2 (11:00→21:07)
[2020-12-16] MEDS: Nystatin TOP POWDER 15 GM BTL TOPICAL SCH ×3 (11:06→21:07)
[2020-12-16] MEDS: Cholecalciferol (VIT D3) 1,000 unit TAB PO SCH (21:03)
[2020-12-16] MEDS: Enoxaparin 40 MG/0.4 ML SYR SUBCUT SCH (21:08)
[2020-12-17] MEDS: Nystatin TOP POWDER 15 GM BTL TOPICAL SCH ×3 (09:01→21:51)
[2020-12-17] MEDS ORDERED: Ondansetron 4 mg VIAL 2 MG/ML 2 ml VIAL IV PRN (12:28)
[2020-12-17] MEDS ORDERED: Ondansetron 4 mg VIAL 2 MG/ML 2 ml VIAL ONE (12:29)
[2020-12-17] MEDS ORDERED: guaiFENesin 100 mg/5 ml LIQ unit dose cup PO PRN (16:01)
[2020-12-17] MEDS: Oral Rinse (Biotene)(NF) 237 ML or 473 ML ORAL RINSE BTL MT SCH ×2 (18:06→22:01)
[2020-12-17] MEDS: Cholecalciferol (VIT D3) 1,000 unit TAB PO SCH (21:50)
[2020-12-17] MEDS: Enoxaparin 40 MG/0.4 ML SYR SUBCUT SCH (21:51)
[2020-12-18] MEDS: Oral Rinse (Biotene)(NF) 237 ML or 473 ML ORAL RINSE BTL MT SCH ×5 (06:00→22:24)
[2020-12-18] MEDS: Nystatin TOP POWDER 15 GM BTL TOPICAL SCH ×3 (08:45→22:23)
[2020-12-18] MEDS: Cholecalciferol (VIT D3) 1,000 unit TAB PO SCH (22:19)
[2020-12-18] MEDS: Enoxaparin 40 MG/0.4 ML SYR SUBCUT SCH (22:20)
[2020-12-19] MEDS: Oral Rinse (Biotene)(NF) 237 ML or 473 ML ORAL RINSE BTL MT SCH ×5 (05:45→20:22)
[2020-12-19 05:54] LABS: Hematocrit 32 % (42-52); Mean Corpuscular HGB Conc 34 g/dL (31-36); Mean Corpuscular Hemoglobin 31 pg (27-31); Mean Corpuscular Volume 90 fL (80-94); Mean Platelet Volume 8.3 fL (7.4-10.4); Platelet Count 378 10^3/uL (150-450); Red Blood Count 3.58 10^6 /uL (4.18-5.48); Red Cell Distribution Width 14 % (10-15); White Blood Count 11.5 10^3/uL (3.5-10.8)
[2020-12-19 06:14] LABS: ABS Basophils 0.1 10^3/ul (0-0.2); ABS Eosinophils 0.1 10^3/ul (0-0.6); ABS Lymphocytes 1.3 10^3/ul (1.0-4.8); ABS Monocytes 1.3 10^3/ul (0-0.8); ABS Neutrophils 8.8 10^3/ul (1.5-7.7); C Reactive Protein 46.79 mg/L (<8.01); Calcium 8.5 mg/dL (8.6-10.3); EGFR African American 104.4 (>60); EGFR Non-African American 86.3 (>60); Eosinophil % 1.1 %; Lymphocyte % 10.9 %; Potassium 3.1 mmol/L (3.5-5.0)
[2020-12-19] MEDS ORDERED: Potassium Chloride LIQUID 20 MEQ/15 ML LIQUID PO ONE (06:20)
[2020-12-19] MEDS ORDERED: NS 0.9% 1000 ml BAG 1,000 ML IV SCH (06:30)
[2020-12-19 06:44] LABS: Magnesium 1.6 mg/dL (1.9-2.7)
[2020-12-19] MEDS ORDERED: Magnesium Sulfate IV 3 GM in NS 0.9% 100 ml BAG 100 ML IVPB ONE (08:00)
[2020-12-19] MEDS: Nystatin TOP POWDER 15 GM BTL TOPICAL SCH ×3 (08:23→20:21)
[2020-12-19] MEDS ORDERED: Vancomycin Trough Check NOTE FOLLOW UP ONE (15:30)
[2020-12-19] MEDS: Cholecalciferol (VIT D3) 1,000 unit TAB PO SCH (20:15)
[2020-12-19] MEDS: Enoxaparin 40 MG/0.4 ML SYR SUBCUT SCH (20:20)
[2020-12-20 05:25] LABS: Hematocrit 31 % (42-52); Hemoglobin 10.6 g/dL (14.0-18.0); Mean Corpuscular HGB Conc 34 g/dL (31-36); Mean Corpuscular Hemoglobin 31 pg (27-31); Mean Corpuscular Volume 91 fL (80-94); Mean Platelet Volume 7.9 fL (7.4-10.4); Platelet Count 365 10^3/uL (150-450); Red Blood Count 3.39 10^6 /uL (4.18-5.48); Red Cell Distribution Width 14 % (10-15); White Blood Count 8.4 10^3/uL (3.5-10.8)
[2020-12-20 05:47] LABS: C Reactive Protein 36.65 mg/L (<8.01); Calcium 8.5 mg/dL (8.6-10.3); EGFR Non-African American 92.5 (>60); Magnesium 1.9 mg/dL (1.9-2.7); Potassium 3.5 mmol/L (3.5-5.0)
[2020-12-20] MEDS: Oral Rinse (Biotene)(NF) 237 ML or 473 ML ORAL RINSE BTL MT SCH ×4 (05:48→17:52)
[2020-12-20 07:17] LABS: ABS Basophils 0.1 10^3/ul (0-0.2); ABS Eosinophils 0.1 10^3/ul (0-0.6); ABS Lymphocytes 1.2 10^3/ul (1.0-4.8); ABS Monocytes 1.1 10^3/ul (0-0.8); ABS Neutrophils 5.9 10^3/ul (1.5-7.7); Eosinophil % 1.5 %; Lymphocyte % 14.4 %
[2020-12-20] MEDS: Nystatin TOP POWDER 15 GM BTL TOPICAL SCH ×3 (09:12→21:08)
[2020-12-20] MEDS: Cholecalciferol (VIT D3) 1,000 unit TAB PO SCH (21:02)
[2020-12-20] MEDS: Enoxaparin 40 MG/0.4 ML SYR SUBCUT SCH (21:03)
[2020-12-21] MEDS: Oral Rinse (Biotene)(NF) 237 ML or 473 ML ORAL RINSE BTL MT SCH ×6 (00:01→22:19)
[2020-12-21 06:59] LABS: ABS Basophils 0.1 10^3/ul (0-0.2); ABS Eosinophils 0.2 10^3/ul (0-0.6); ABS Lymphocytes 1.3 10^3/ul (1.0-4.8); ABS Neutrophils 5.9 10^3/ul (1.5-7.7); Hematocrit 32 % (42-52); Hemoglobin 11.2 g/dL (14.0-18.0); Lymphocyte % 15.3 %; Mean Corpuscular HGB Conc 35 g/dL (31-36); Mean Corpuscular Hemoglobin 32 pg (27-31); Mean Corpuscular Volume 90 fL (80-94); Mean Platelet Volume 8.4 fL (7.4-10.4); Platelet Count 368 10^3/uL (150-450); Red Blood Count 3.55 10^6 /uL (4.18-5.48); Red Cell Distribution Width 14 % (10-15); White Blood Count 8.4 10^3/uL (3.5-10.8)
[2020-12-21 07:21] LABS: Calcium 8.8 mg/dL (8.6-10.3); EGFR African American 113.6 (>60); EGFR Non-African American 93.9 (>60); Magnesium 1.8 mg/dL (1.9-2.7); Potassium 3.7 mmol/L (3.5-5.0)
[2020-12-21] MEDS ORDERED: Magnesium Sulfate 2 gm BAG 2 GM/50 ML BAG IVPB ONE (08:00)
[2020-12-21] MEDS: Nystatin TOP POWDER 15 GM BTL TOPICAL SCH ×3 (10:32→21:52)
[2020-12-21] MEDS: CMCS:Meloxicam 7.5 mg TAB (NF) PO PRN (10:33)
[2020-12-21] MEDS: Cholecalciferol (VIT D3) 1,000 unit TAB PO SCH (21:52)
[2020-12-21] MEDS: Magnesium Hydroxide LIQ 30 ML UDC PO PRN (21:54)
[2020-12-21] MEDS: Enoxaparin 40 MG/0.4 ML SYR SUBCUT SCH (21:55)
[2020-12-22] MEDS: Oral Rinse (Biotene)(NF) 237 ML or 473 ML ORAL RINSE BTL MT SCH ×5 (05:44→21:21)
[2020-12-22 06:11] LABS: Calcium 8.4 mg/dL (8.6-10.3); EGFR African American 118.8 (>60); EGFR Non-African American 98.2 (>60); Potassium 3.7 mmol/L (3.5-5.0)
[2020-12-22] MEDS: Nystatin TOP POWDER 15 GM BTL TOPICAL SCH ×3 (08:55→21:20)
[2020-12-22] MEDS: Enoxaparin 40 MG/0.4 ML SYR SUBCUT SCH (21:19)
[2020-12-22] MEDS: Cholecalciferol (VIT D3) 1,000 unit TAB PO SCH (21:19)
[2020-12-23] MEDS: Oral Rinse (Biotene)(NF) 237 ML or 473 ML ORAL RINSE BTL MT SCH ×3 (06:07→14:31)
[2020-12-23] MEDS: Nystatin TOP POWDER 15 GM BTL TOPICAL SCH ×2 (10:17→14:32)
[2020-12-23 14:36] VITALS: BP 142/69
== END 2020-12-23 14:14 | disposition swing bed (61) | DRG 871 ==
LOC: ED 15:49 → MEDTELE 23:15 → MED 12-13 23:11
PROVIDERS: ADMIT Student in an Organized Health Care Education/Training Program; ATTEND Student in an Organized Health Care Education/Training Program

== ENCOUNTER 2020-12-23 14:38 | Inpatient (IN) ==
[2020-12-23] MEDS ORDERED: Albuterol HFA INHALER 8 gm MDI INH PRN (14:52)
[2020-12-23] MEDS ORDERED: Al Hydrox/Mg Hydrox/Simet LIQ 30 ML UDC PO PRN (14:52)
[2020-12-23] MEDS ORDERED: Polyethylene Glycol 3350 17 GM PACKET PO PRN (14:52)
[2020-12-23] MEDS: ACETAMIN PO PRN ×2 (15:31→22:21)
[2020-12-23] MEDS: HYDROCODONE PO PRN ×2 (15:31→22:21)
[2020-12-23] MEDS ORDERED: Dextrose 50% Syringe 50 ml 25 GM/50 ML SYRINGE IV PUSH PRN (18:13)
[2020-12-23] MEDS: Enoxaparin 40 MG/0.4 ML SYR SUBCUT SCH (18:22)
[2020-12-23] MEDS: Oral Rinse (Biotene)(NF) 237 ML or 473 ML ORAL RINSE BTL MT SCH ×2 (18:23→22:36)
[2020-12-23] MEDS: Cholecalciferol (VIT D3) 1,000 unit TAB PO SCH (22:21)
[2020-12-23] MEDS: CMC:Meloxicam 7.5 mg TAB (NF) PO SCH (22:25)
[2020-12-23] MEDS: Nystatin TOP POWDER 15 GM BTL TOPICAL SCH (22:35)
[2020-12-24] MEDS: Oral Rinse (Biotene)(NF) 237 ML or 473 ML ORAL RINSE BTL MT SCH ×5 (05:50→22:00)
[2020-12-24] MEDS: CMC:Meloxicam 7.5 mg TAB (NF) PO SCH ×2 (08:58→21:41)
[2020-12-24] MEDS: Nystatin TOP POWDER 15 GM BTL TOPICAL SCH ×3 (08:59→21:41)
[2020-12-24] MEDS: Enoxaparin 40 MG/0.4 ML SYR SUBCUT SCH (17:31)
[2020-12-24] MEDS: Cholecalciferol (VIT D3) 1,000 unit TAB PO SCH (21:41)
[2020-12-24] MEDS: ACETAMIN PO PRN (21:47)
[2020-12-24] MEDS: HYDROCODONE PO PRN (21:47)
[2020-12-25] MEDS: Oral Rinse (Biotene)(NF) 237 ML or 473 ML ORAL RINSE BTL MT SCH ×5 (05:34→21:38)
[2020-12-25] MEDS: CMC:Meloxicam 7.5 mg TAB (NF) PO SCH ×2 (08:58→21:35)
[2020-12-25] MEDS: HYDROCODONE PO PRN ×2 (08:58→21:35)
[2020-12-25] MEDS: ACETAMIN PO PRN ×2 (08:58→21:35)
[2020-12-25] MEDS: Nystatin TOP POWDER 15 GM BTL TOPICAL SCH ×3 (08:59→21:36)
[2020-12-25] MEDS: Enoxaparin 40 MG/0.4 ML SYR SUBCUT SCH (16:50)
[2020-12-25] MEDS: Cholecalciferol (VIT D3) 1,000 unit TAB PO SCH (21:35)
[2020-12-26] MEDS: Oral Rinse (Biotene)(NF) 237 ML or 473 ML ORAL RINSE BTL MT SCH ×4 (06:10→17:54)
[2020-12-26] MEDS: CMC:Meloxicam 7.5 mg TAB (NF) PO SCH ×2 (08:41→22:04)
[2020-12-26] MEDS: Nystatin TOP POWDER 15 GM BTL TOPICAL SCH ×3 (11:12→22:37)
[2020-12-26] MEDS: ACETAMIN PO PRN (11:16)
[2020-12-26] MEDS: HYDROCODONE PO PRN (11:16)
[2020-12-26] MEDS: Enoxaparin 40 MG/0.4 ML SYR SUBCUT SCH (17:53)
[2020-12-26] MEDS: Cholecalciferol (VIT D3) 1,000 unit TAB PO SCH (22:02)
[2020-12-27] MEDS: Oral Rinse (Biotene)(NF) 237 ML or 473 ML ORAL RINSE BTL MT SCH ×4 (02:15→13:25)
[2020-12-27 08:04] VITALS: BP 153/59
[2020-12-27] MEDS: CMC:Meloxicam 7.5 mg TAB (NF) PO SCH (09:48)
[2020-12-27] MEDS: Nystatin TOP POWDER 15 GM BTL TOPICAL SCH ×2 (09:50→13:25)
[2020-12-27] MEDS ORDERED: Collagenase 250 units/gm OINT 1 tube TOPICAL SCH (12:30)
== END 2020-12-27 14:35 | disposition home or self-care (01) ==
LOC: MED 14:38
PROVIDERS: ADMIT Student in an Organized Health Care Education/Training Program; ATTEND Internal Medicine